=== PATIENT | male | born 1970 | race Hispanic/Latino ===

== ENCOUNTER 2021-02-01 10:31 | Emergency (ER) | payer SELFPAY ==
[2021-02-01 11:31] LABS: Urine Blood Negative (Negative); Urine Glucose Trace (Negative); Urine Protein Trace (Negative); Urine Specific Gravity >=1.030 (1.005-1.030)
--- NOTE | 2021-02-01 12:39 | ER ---
Nurse's Notes [facility] Name: Abimael Redmond Age: 50 yrs Sex: Male : 1970 Arrival Date: 02/01/2021 Time: 10:33 Bed 12 Private MD: Diagnosis: Other abnormal findings in urine-[place] Presentation: 02/01 11:02 Chief complaint: Patient states: Doing a work physical and there was blood and protein jl7 in the urine, reports mild burning with urination since this morning, denies back pain, denies N/V/D. Coronavirus screen: Vaccine status: Patient reports being unvaccinated. Ebola Screen: No symptoms or risks identified at this time. Initial Sepsis Screen: Does the patient meet any 2 criteria? No. Patient's initial sepsis screen is negative. Does the patient have a suspected source of infection? No. Patient's initial sepsis screen is negative. Risk Assessment: Do you want to hurt yourself or someone else? Patient reports no desire to harm self or others. Onset of symptoms is unknown. 11:02 Method Of Arrival: Ambulatory jl7 11:02 Acuity: ELIZABETH 3 jl7 Triage Assessment: 11:05 General: Appears in no apparent distress. uncomfortable, Behavior is calm, cooperative, jl7 appropriate for age. Pain: Denies pain. Neuro: Level of Consciousness is awake, alert, obeys commands, Oriented to person, place, time, situation. Cardiovascular: Patient's skin is warm and dry. Respiratory: Airway is patent Respiratory effort is even, unlabored, Respiratory pattern is regular, symmetrical. : Reports burning with urination. Derm: Skin is pink, warm \T\ dry. Historical: - Allergies: 11:05 No Known Allergies; jl7 - Home Meds: 11:05 glyburide 5 mg Oral tab 1 tab once daily [Active]; jl7 - PMHx: 11:05 Diabetes - NIDDM; jl7 - PSHx: 11:05 right knee; jl7 - Immunization history:: Adult Immunizations not up to date, Client reports having NOT received the Covid vaccine. - Social history:: Smoking status: Patient denies any tobacco usage or history of. Screenin:20 Abuse screen: Denies threats or abuse. Nutritional screening: No deficits noted. ap3 Tuberculosis screening: No symptoms or risk factors identified. Fall Risk None identified. Assessment: 12:19 General: Appears in no apparent distress. comfortable, Behavior is cooperative, ap3 appropriate for age, anxious. Pain: Denies pain. Neuro: Level of Consciousness is awake, alert, obeys commands, Oriented to person, place, time, situation, Appropriate for age Personal Counselor are equal bilaterally Moves all extremities. Gait is steady, Speech is normal. Cardiovascular: Denies chest pain, shortness of breath. Respiratory: Airway is patent Respiratory effort is even, unlabored, Respiratory pattern is regular, symmetrical. GI: No signs and/or symptoms were reported involving the gastrointestinal system. : Denies burning with urination, incontinence, pain urinary frequency, urgency. EENT: No signs and/or symptoms were reported regarding the EENT system. Derm: No signs and/or symptoms reported regarding the dermatologic system. Musculoskeletal: No signs and/or symptoms reported regarding the musculoskeletal system. Vital Signs: 11:02 BP 130 / 91; Pulse 75; Resp 17; Temp 98.7; Pulse Ox 99% ; Weight 84.82 kg; Height 5 ft. jl7 10 in. (177.80 cm); Pain 0/10; 11:02 Body Mass Index 26.83 (84.82 kg, 177.80 cm) jl7 ED Course: 10:33 Patient arrived in ED. am2 11:05 Triage completed. jl7 11:05 Arm band placed on right wrist. Patient placed in waiting room, Patient notified of jl7 wait time. 12:15 Dyllan He PA is PHCP. jr8 12:15 Tate Kennedy MD is Attending Physician. jr8 12:19 Evelin Urbano, ROBERTA is Primary Nurse. ap3 12:20 Patient has correct armband on for positive identification. Call light in reach. ap3 patient in recliner with wheels locked. Door closed. Noise minimized. 12:46 No provider procedures requiring assistance completed. Patient did not have IV access ap3 during this emergency room visit. Administered Medications: No medications were administered Outcome: 12:39 Discharge ordered by . jr8 12:47 Discharged to home ambulatory. ap3 12:47 Condition: good 12:47 Discharge instructions given to patient, Instructed on discharge instructions, follow up and referral plans. Demonstrated understanding of instructions, follow-up care. 12:47 Patient left the ED. ap3 Signatures: Dyllan He PA PA jr8 Shelley Amanda RN RN jl7 Evelin Mancini am2 Evelin Urbano RN RN ap3
--- NOTE | 2021-02-01 12:39 | EDPHYS ---
Physician Documentation [facility] Name: Abimael Redmond Age: 50 yrs Sex: Male : 1970 Arrival Date: 02/01/2021 Time: 10:33 Bed 12 Private MD: ED Physician Tate Kennedy HPI: 02/01 12:43 This 50 yrs old Male presents to ER via Ambulatory with complaints of Abnormal jr8 Lab Results. 12:43 Onset: The symptoms/episode began/occurred acutely, today. Associated signs and jr8 symptoms: The patient has no apparent associated signs or symptoms. The patient has not experienced similar symptoms in the past. Patient was sent by work physical PCP to ED for further workup as they found blood and protein in urine. Currently denies any complaints . Historical: - Allergies: 11:05 No Known Allergies; jl7 - Home Meds: 11:05 glyburide 5 mg Oral tab 1 tab once daily [Active]; jl7 - PMHx: 11:05 Diabetes - NIDDM; jl7 - PSHx: 11:05 right knee; jl7 - Immunization history:: Adult Immunizations not up to date, Client reports having NOT received the Covid vaccine. - Social history:: Smoking status: Patient denies any tobacco usage or history of. ROS: 12:43 Eyes: Negative for injury, pain, redness, and discharge, ENT: Negative for injury, jr8 pain, and discharge, Neck: Negative for injury, pain, and swelling, Cardiovascular: Negative for chest pain, palpitations, and edema, Respiratory: Negative for shortness of breath, cough, wheezing, and pleuritic chest pain, Abdomen/GI: Negative for abdominal pain, nausea, vomiting, diarrhea, and constipation, Back: Negative for injury and pain, MS/Extremity: Negative for injury and deformity, Skin: Negative for injury, rash, and discoloration, Neuro: Negative for headache, weakness, numbness, tingling, and seizure. Exam: 12:43 Constitutional: This is a well developed, well nourished patient who is awake, alert, jr8 and in no acute distress. Cardiovascular: Regular rate and rhythm with a normal S1 and S2. No gallops, murmurs, or rubs. Normal PMI, no JVD. No pulse deficits. Respiratory: Lungs have equal breath sounds bilaterally, clear to auscultation and percussion. No rales, rhonchi or wheezes noted. No increased work of breathing, no retractions or nasal flaring. Abdomen/GI: Soft, non-tender, with normal bowel sounds. No distension or tympany. No guarding or rebound. No evidence of tenderness throughout. Back: No spinal tenderness. No costovertebral tenderness. Full range of motion. Skin: Warm, dry with normal turgor. Normal color with no rashes, no lesions, and no evidence of cellulitis. MS/ Extremity: Pulses equal, no cyanosis. Neurovascular intact. Full, normal range of motion. Neuro: Awake and alert, GCS 15, oriented to person, place, time, and situation. Motor strength 5/5 in all extremities. Sensory grossly intact. Vital Signs: 11:02 BP 130 / 91; Pulse 75; Resp 17; Temp 98.7; Pulse Ox 99% ; Weight 84.82 kg; Height 5 ft. jl7 10 in. (177.80 cm); Pain 0/10; 11:02 Body Mass Index 26.83 (84.82 kg, 177.80 cm) jl7 MDM: 12:15 Patient medically screened. 8 12:36 Data reviewed: vital signs, nurses notes, lab test result(s), and as a result, I will [facility] discharge patient. Data interpreted: Pulse oximetry: on room air is 99 %. Interpretation: normal. Counseling: I had a detailed discussion with the patient and/or guardian regarding: the historical points, exam findings, and any diagnostic results supporting the discharge/admit diagnosis, lab results, the need for outpatient follow up, a family practitioner, to return to the emergency department if symptoms worsen or persist or if there are any questions or concerns that arise at home. ED course: Discussed with patient that there was no microscopic or gross hematuria on exam or laboratory specimen. Needs to follow-up with primary care for general blood work. At this time based on physical exam and urinalysis there is no need for emergent work-up past we have done. Discussed with patient if something were to change come back for follow-up to the emergency room.. 02/01 11:31 Order name: Urine Dipstick-Ancillary; Complete Time: 12:15 EDMS 02/01 11:19 Order name: Urine Dipstick-Ancillary (obtain specimen); Complete Time: 12:09 jl7 Administered Medications: No medications were administered Disposition: 02/02 09:18 Co-signature as Attending Physician, Tate Kennedy MD I agree with the assessment and rosi plan of care. Disposition Summary: 02/01/21 12:39 Discharge Ordered Location: Home jr8 Problem: new jr8 Symptoms: have improved jr8 Condition: Stable jr8 Diagnosis - Other abnormal findings in urine - [place] jr8 Followup: jr8 - With: Private Physician - When: 2 - 3 days - Reason: Recheck today's complaints, Continuance of care, Re-evaluation by your physician Discharge Instructions: - Discharge Summary Sheet jr8 - Urinalysis Test jr8 Forms: - Medication Reconciliation Form jr8 - Thank You Letter jr8 - Antibiotic Education jr8 - Prescription Opioid Use jr8 Signatures: Dispatcher [employer] Tate Resendiz MD MD cha Roszak, Josh, PA PA jr8 Shelley Amanda, RN RN jl7
[2021-02-01 13:02] VITALS: BP 130/91; TEMP 98.7; O2SAT 99
== END 2021-02-01 12:47 | disposition home or self-care (01) ==
LOC: ER 10:31
DX: R82.4 Acetonuria (principal); E11.9 Type 2 diabetes mellitus without complications
CPT/HCPCS: 81003; 99281